=== PATIENT | male | born 1995 | race Caucasian/White ===

== ENCOUNTER 2025-04-21 11:47 | Emergency (ER) | payer SELFPAY ==
[2025-04-21 12:06] LABS: #Basophils 0.07 10x3/uL (0.0-0.2); #Eosinophils 0.05 10x3/uL (0.0-0.7); #Monocytes 0.69 10x3/uL (0.11-0.59); #Neutrophils 4.89 10x3/uL (1.40-6.50); %Basophils 1.0 % (0.0-1.0); %Eosinophils 0.7 % (0.0-10.0); %Lymphocytes 19.9 % (21.0-51.0); %Monocytes 9.7 % (0.0-10.0); %Neutrophils 68.4 % (42.0-75.0); Hematocrit 42.1 % (42.0-52.0); Hemoglobin 14.4 g/dL (14.0-18.0); Mean Corpuscular Hemoglobin 31.9 pg (27.0-31.0); Mean Corpuscular Volume 93.1 fL (78.0-98.0); Platelet Count 342 10x3/uL (130-400); Red Blood Cell (RBC) Count 4.52 mill/uL (4.70-6.10); White Blood Cell (WBC) Count 7.14 10x3/uL (4.8-10.8)
[2025-04-21 12:21] LABS: INR-International Normal Ratio 1.2; PTT 26.7 sec (22.9-36.1); Prothrombin Time 15.1 sec (12.0-14.7)
[2025-04-21 12:25] LABS: ALT (SGPT) 22 U/L (Less than 45); AST (SGOT) 23 U/L (11-34); Albumin 4.5 g/dL (3.1-4.5); Alkaline Phosphatase 61 U/L (40-110); Anion Gap 15 mmol/L (10-20); BUN (Urea Nitrogen) 12 mg/dL (8.9-20.6); Bilirubin, Total 0.7 mg/dL (0.3-1.2); Calc. Creatinine Clearance 0 mL/min (70-130); Calcium 9.2 mg/dL (7.8-10.44); Carbon Dioxide 23 mmol/L (22-29); Chloride 109 mmol/L (98-107); Globulin 2.0 g/dL (2.4-3.5); Glucose 87 mg/dL (70-105); Lipase 24 U/L (8-78); Potassium 3.9 mmol/L (3.5-5.1); Sodium 143 mmol/L (136-145)
[2025-04-21] MEDS ORDERED: Acetaminophen 500 MG TAB ONE (12:33)
== END 2025-04-21 16:53 | disposition left against medical advice (07) ==
LOC: ERS 11:47
DX: S39.012A Strain of muscle, fascia and tendon of lower back, initial encounter (principal); I67.1 Cerebral aneurysm, nonruptured; Z23 Encounter for immunization; V24.49XA Other motorcycle driver injured in collision with heavy transport vehicle or bus in traffic accident, initial encounter; Y92.410 Unspecified street and highway as the place of occurrence of the external cause
CPT/HCPCS: 70450; 70496; 70498; 71260; 72125; 74177; 80053; 83690; 85025; 85610; 85730; 90471; 90715; G0390